=== PATIENT | female | born 1995 | race African-American/Black ===

== ENCOUNTER 2016-06-09 21:17 | Emergency (ER) | payer MEDICAID ==
[~2016-06-09] VITALS: Ht 165.1 cm; Wt 132.0 kg
[2016-06-09 22:20] VITALS: BP 160/96
== END 2016-06-10 00:05 | disposition left against medical advice (07) ==
LOC: ER 21:18
DX: M54.9 Dorsalgia, unspecified (principal); Z53.21 Procedure and treatment not carried out due to patient leaving prior to being seen by health care provider

== ENCOUNTER 2016-06-10 07:02 | Emergency (ER) | payer MEDICAID ==
[~2016-06-10] VITALS: Ht 165.1 cm; Wt 102.0 kg
[2016-06-10 07:15] VITALS: BP 145/92
[2016-06-10] MEDS ORDERED: KETOROLAC 30MG/ML VIAL IV ONE (08:00)
[2016-06-10] MEDS ORDERED: SODIUM CHLORIDE 0.9% 1,000 ML IV ONE (08:00)
[2016-06-10 08:17] LABS: EOSINOPHILS % 2.9 % (0.0-5.0); HEMATOCRIT. 33.2 % (36.0-48.0); HEMOGLOBIN. 10.9 g/dL (12.0-16.0); LYMPHOCYTES % 28.1 % (20.0-50.0); MEAN CORPUSCULAR HEMOGLOBIN 22.3 pg (28.0-32.0); MEAN CORPUSCULAR VOLUME 67.6 fL (81.0-99.0); MEAN PLATELET VOLUME 8.8 fl (7.4-10.4); MONOCYTES % 6.3 % (2.0-8.0); NEUTROPHILS % 61.7 % (40.0-76.0); PLATELET 258 x1000/uL (130-400); RED CELL DISTRIBUTION WIDTH 19.1 % (11.6-14.6); WHITE BLOOD COUNT 8.2 x1000/uL (4.5-11.0)
[2016-06-10 08:18] LABS: ADD RBC MORPHOLOGY YES; DIFFERENTIAL COMMENT 1
[2016-06-10 08:26] LABS: ANION GAP 12; CALCIUM 8.7 mg/dL (8.5-10.1); CARBON DIOXIDE 24 mEq/L (21-32); CHLORIDE 109 mEq/L (98-107); INDEX HEMOLYSI 1 (1-3); INDEX ICTERIC 1 (1-4); INDEX LIPEMIC 1 (1-3); UREA NITROGEN BLOOD 6 mg/dL (7-21); eGFR > 60 mL/min (>60)
[2016-06-10 08:56] LABS: ANISOCYTOSIS 1+; HYPOCHROMASIA 1+; PLATELET ESTIMATE NORMAL
[2016-06-10 08:57] LABS: GIANT PLATELETS 1+
== END 2016-06-10 08:20 | disposition left against medical advice (07) ==
LOC: ER 07:27
DX: Z76.5 Malingerer [conscious simulation] (principal); D57.1 Sickle-cell disease without crisis; Z88.8 Allergy status to other drugs, medicaments and biological substances
CPT/HCPCS: 36415; 80048; 85025; 85044; 99284; J7030

== ENCOUNTER 2017-01-13 05:40 | Emergency (ER) | payer MEDICAID ==
[~2017-01-13] VITALS: Ht 165.1 cm; Wt 116.0 kg
[2017-01-13] MEDS ORDERED: ALBUTEROL (0.083%) 2.5MG/3ML NEB HHN ONE (08:00)
[2017-01-13] MEDS ORDERED: IBUPROFEN 800MG TABLET PO ONE (08:00)
[2017-01-13 09:00] LABS: BASOPHILS % 0.6 % (0.0-2.0); EOSINOPHILS % 5.8 % (0.0-5.0); HEMATOCRIT. 32.1 % (36.0-48.0); HEMOGLOBIN. 10.5 g/dL (12.0-16.0); LYMPHOCYTES % 28.1 % (20.0-50.0); MEAN CORPUSCULAR HEMOGLOBIN 20.9 pg (28.0-32.0); MEAN PLATELET VOLUME 9.1 fl (7.4-10.4); MONOCYTES % 5.8 % (2.0-8.0); NEUTROPHILS % 59.7 % (40.0-76.0); PLATELET 289 x1000/uL (130-400); RED BLOOD CELL COUNT 5.01 mill/uL (4.2-5.4); RED CELL DISTRIBUTION WIDTH 20.9 % (11.6-14.6)
[2017-01-13 09:06] LABS: CARBON DIOXIDE 22 mEq/L (21-32); CHLORIDE 110 mEq/L (98-107)
[2017-01-13] MEDS ORDERED: HYDROCODONE/ACETAMINOPHEN 10/325MG TABLET PO ONE (09:15)
[2017-01-13 09:46] LABS: PLATELET ESTIMATE NORMAL
[2017-01-13 10:10] VITALS: BP 148/82
== END 2017-01-13 10:34 | disposition home or self-care (01) ==
LOC: ER 05:40
DX: J06.9 Acute upper respiratory infection, unspecified (principal); M79.1 Myalgia; D57.1 Sickle-cell disease without crisis; Z88.5 Allergy status to narcotic agent
CPT/HCPCS: 36415; 71010; 80053; 81025; 85025; 85044; 87804; 94640; 99285; J7611; Z7610

== ENCOUNTER 2017-03-09 20:41 | Emergency (ER) | payer MEDICAID | END 2017-03-09 22:15 | disposition left against medical advice (07) | LOC: ER 21:53 | DX: M79.1 Myalgia (principal); Z53.21 Procedure and treatment not carried out due to patient leaving prior to being seen by health care provider ==

== ENCOUNTER 2017-04-30 17:26 | Emergency (ER) | payer MEDICAID ==
[~2017-04-30] VITALS: Ht 165.1 cm; Wt 103.0 kg
[2017-05-01] MEDS ORDERED: HYDROCODONE/ACETAMINOPHEN 10/325MG TABLET PO ONE
[2017-05-01 00:14] LABS: BASOPHILS % 0.5 % (0.0-2.0); EOSINOPHILS % 2.1 % (0.0-5.0); HEMOGLOBIN. 9.7 g/dL (12.0-16.0); LYMPHOCYTES % 37.6 % (20.0-50.0); MEAN CORPUSCULAR HEMOGLOBIN 20.3 pg (28.0-32.0); MEAN CORPUSCULAR VOLUME 63.1 fL (81.0-99.0); MEAN PLATELET VOLUME 8.9 fl (7.4-10.4); NEUTROPHILS % 52.8 % (40.0-76.0); PLATELET 316 x1000/uL (130-400); RED BLOOD CELL COUNT 4.76 mill/uL (4.2-5.4); RED CELL DISTRIBUTION WIDTH 21.2 % (11.6-14.6)
[2017-05-01 00:21] LABS: CHLORIDE 107 mEq/L (98-107)
[2017-05-01 03:50] VITALS: BP 110/59
== END 2017-05-01 03:50 | disposition home or self-care (01) ==
LOC: ER 19:50
DX: M79.1 Myalgia (principal); D57.1 Sickle-cell disease without crisis; Z88.6 Allergy status to analgesic agent
CPT/HCPCS: 36415; 71045; 80053; 81025; 85025; 85044; 87804; 93005; 99285; Z7610